=== PATIENT | male | born 2000 | race African-American/Black ===

== ENCOUNTER 2020-07-07 21:24 | Emergency (ER) | payer OTHER ==
[2020-07-07 21:33] VITALS: BP 138/79
[2020-07-07] MEDS ORDERED: IBUPROFEN 800 MG TABLET PO ONE (21:44)
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
== END 2020-07-07 22:02 | disposition home or self-care (01) ==
LOC: ER 21:24
DX: M54.5 Low back pain (principal); R07.89 Other chest pain; M54.2 Cervicalgia; M54.9 Dorsalgia, unspecified; V49.40XA Driver injured in collision with unspecified motor vehicles in traffic accident, initial encounter; Z88.0 Allergy status to penicillin
CPT/HCPCS: 99283